=== PATIENT | male | born 2005 | race African-American/Black ===

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

== ENCOUNTER 2023-07-29 22:05 | Emergency (ER) | payer BC ==
[~2023-07-29] VITALS: Ht 193 cm; Wt 90.7 kg
== END 2023-07-29 23:12 | disposition home or self-care (01) ==
LOC: ED 22:05
DX: S01.81XA Laceration without foreign body of other part of head, initial encounter (principal); J45.909 Unspecified asthma, uncomplicated; Z98.890 Other specified postprocedural states; W21.05XA Struck by basketball, initial encounter; Y93.67 Activity, basketball; Y92.310 Basketball court as the place of occurrence of the external cause; Y99.8 Other external cause status